=== PATIENT | female | born 1980 | race Caucasian/White ===

== ENCOUNTER 2017-07-14 04:53 | Emergency (ER) | payer SELFPAY ==
[2017-07-14 05:21] LABS: BASOPHILS 0.1 % (0-2); EOSINOPHILS 1.1 % (0-7); HEMOGLOBIN 14.1 g/dL (12-16); IMMATURE GRANULOCYTES 0.2 % (0-5); LYMPHOCYTES 14.7 % (15-50); MCH 34.1 pg (26.0-34.0); MCHC 33.6 g/dL (31.0-37.0); MCV 101.7 fL (80.0-100.0); MEAN PLATELET VOLUME 9.6 fL (7.4-10.4); MONOCYTES 9.3 % (2-11); NEUTROPHILS 74.6 % (40-80); PLATELET COUNT 345 10x3/uL (130-400); RBC 4.13 10x6/uL (4.00-5.40); RDW 12.3 % (11.5-14.5)
[2017-07-14 05:25] LABS: APPEARANCE HAZY (CLEAR); BACTERIA FEW /hpf (NONE SEEN); BILIRUBIN NEGATIVE (NEGATIVE); COLOR YELLOW (YELLOW); GLUCOSE NEGATIVE (NEGATIVE); KETONE NEGATIVE (NEGATIVE); NITRITE NEGATIVE (NEGATIVE); PROTEIN TRACE mg/dL (NEGATIVE); RED CELLS - URINE 0-5 /hpf (0-5); SPECIFIC GRAVITY 1.015 (1.005-1.020); UROBILINOGEN NORMAL (NORMAL); WHITE CELLS - URINE 0-5 /hpf (0-5)
[2017-07-14 05:26] LABS: AMORPHOUS SEDIMENT <1+ /lpf (NONE SEEN)
[2017-07-14 05:36] LABS: HCG SERUM NEGATIVE (NEGATIVE)
== END 2017-07-14 05:52 | disposition home or self-care (01) ==
LOC: D.ER 04:53
PROVIDERS: Emergency Medicine
DX: R10.2 Pelvic and perineal pain (principal); F17.200 Nicotine dependence, unspecified, uncomplicated